=== PATIENT | female | born 2005 | race Caucasian/White ===

== ENCOUNTER 2023-06-30 15:19 | Emergency (ER) | payer MEDICARE ==
[2023-06-30 15:43] VITALS: TEMP 98.2
--- NOTE | 2023-06-30 15:48 | ED ---
Upper Extremity HPI - General Chief Complaint: Extremity Injury, Upper Stated Complaint: Left Wrist Injury Time Seen by Provider: 06/30/23 15:32 Source: patient, RN notes reviewed, old records reviewed Mode of arrival: ambulatory Limitations: no limitations - History of Present Illness Initial Comments: This is a 18-year-old female to the ER today. Patient went today for evaluation of severe wrist pain persistent wrist pain after a fall. Patient has had an additional fall as well as a repeat fall resulting in left wrist pain which is presenting her to the ER today. She has no other complaints no other injuries noted MD Complaint: Injury to:: left, wrist, hand -: days(s) Other Extremity Injury: Hand: Left, Wrist: Left Other Injuries: none Handedness: right Place: home Severity scale (1-10): 9 Improves With: none Worsens With: none Context: fall, direct blow Associated Symptoms: denies other symptoms Treatments Prior to Arrival: cold therapy, bandage, splint - Related Data Allergies Allergy/AdvReac Type Severity Reaction Status Date / Time No Known Allergies Allergy Verified 06/30/23 15:27 Review of Systems ROS Statement: Those systems with pertinent positive or pertinent negative responses have been documented in the HPI. ROS Other: All systems not noted in ROS Statement are negative. Past Medical History Past Medical History: No Reported History Past Surgical History: No Surgical Hx Reported Smoking Status: Never smoker General Exam Limitations: no limitations General appearance: alert, in no apparent distress Head exam: Present: atraumatic, normocephalic, normal inspection Eye exam: Present: normal appearance, PERRL, EOMI. Absent: scleral icterus, conjunctival injection, periorbital swelling ENT exam: Present: normal exam, mucous membranes moist Neck exam: Present: normal inspection. Absent: tenderness, meningismus, lymphadenopathy Respiratory exam: Present: normal lung sounds bilaterally. Absent: respiratory distress, wheezes, rales, rhonchi, stridor Cardiovascular Exam: Present: regular rate, normal rhythm, normal heart sounds. Absent: systolic murmur, diastolic murmur, rubs, gallop, clicks GI/Abdominal exam: Present: soft, normal bowel sounds. Absent: distended, tenderness, guarding, rebound, rigid Extremities exam: Present: normal inspection, full ROM, normal capillary refill. Absent: tenderness, pedal edema, joint swelling, calf tenderness Back exam: Present: normal inspection Neurological exam: Present: alert, oriented X3, CN II-XII intact Psychiatric exam: Present: normal affect, normal mood Skin exam: Present: warm, dry, intact, normal color. Absent: rash Course Vital Signs 06/30/23 06/30/23 15:24 18:12 Temperature 98.2 F Pulse Rate 77 81 Respiratory 16 18 Rate Blood Pressure 120/84 110/76 O2 Sat by Pulse 95 96 Oximetry - Reevaluation(s) Reevaluation #1: Medical record is reviewed Reevaluation #2: Patient symptoms unchanged Reevaluation #3: Patient informed of results and questions answered Reevaluation #4: Was pt. sent in by a medical professional or institution (, DELFINA, CLINICAL NURSE SPECIALIST, urgent care, hospital, or senior living...) When possible be specific @ -no Did you speak to anyone other than the patient for history (EMS, parent, family, police, friend...)? What history was obtained from this source @ -no Did you review nursing and triage notes (agree or disagree)? Why? @ -agree Are old charts reviewed (outside hosp., previous admission, EMS record, old EKG, old radiological studies, urgent care reports/EKG's, senior living records)? Report findings @ -yes Differential Diagnosis (chest pain, altered mental status, abdominal pain women, abdominal pain men, vaginal bleeding, weakness, fever, dyspnea, syncope, headache, dizziness, GI bleed, back pain, seizure, CVA, palpatations, mental health, musculoskeletal)? @ -prior EKG interpreted by me (3pts min.). @ -yes X-rays interpreted by me (1pt min.). @ -yes negative for acute disease CT interpreted by me (1pt min.). @ -no U/S interpreted by me (1pt. min.). @ -no What testing was considered but not performed or refused? (CT, X-rays, U/S, labs)? Why? @ -none What meds were considered but not given or refused? Why? @ -none Did you discuss the management of the patient with other professionals (professionals i.e. DELFINA Gorman, CLINICAL NURSE SPECIALIST, lab, RT, psych nurse, social work job titles, making line worker, teacher, electronic warfare officer, geriatric case manager)? Give summary @ -no Was smoking cessation discussed for >3mins.? @ -no Was critical care preformed (if so, how long)? @ -no Were there social determinants of health that impacted care today? How? (Homelessness, low income, unemployed, alcoholism, drug addiction, transportation, low edu. Level, literacy, decrease access to med. care, longterm, rehab)? @ -none Was there de-escalation of care discussed even if they declined (Discuss DNR or withdrawal of care, Hospice)? DNR status @ -no What co-morbidities impacted this encounter? (DM, HTN, Smoking, COPD, CAD, Cancer, CVA, ARF, Chemo, Hep., AIDS, mental health diagnosis, sleep apnea, morbid obesity)? @ -none Was patient admitted / discharged? Hospital course, mention meds given and route, prescriptions, significant lab abnormalities, going to OR and other pertinent info. @ - Undiagnosed new problem with uncertain prognosis? @ -no Drug Therapy requiring intensive monitoring for toxicity (Heparin, Nitro, Insulin, Cardizem)? @ -no Were any procedures done? @ -no Diagnosis/symptom? @ - Acute, or Chronic, or Acute on Chronic? @ -Acute Uncomplicated (without systemic symptoms) or Complicated (systemic symptoms)? @ -Complicated Side effects of treatment? @ -no Exacerbation, Progression, or Severe Exacerbation? @ -exacerbation Poses a threat to life or bodily function? How? (Chest pain, [place], [place], pneumonia, PE, COPD, DKA, ARF, appy, cholecystitis, CVA, Diverticulitis, Homicidal, Suicidal, threat to staff... and all critical care pts) @ -yes Procedures - Orthopedic Splinting/Casting Injury #1 Side: left Upper Extremity Injury Location: wrist, hand Upper Extremity Immobilizer: thumb spica Medical Decision Making - Medical Decision Making 18 female to ER after a fall. Multiple recent falls on the left wrist with severe left wrist pain and swelling. Patient has been waiting at home for pain to improve but pain has not improved increased swelling and decreased range of motion in the left wrist. Patient does have possible evidence of scapholunate sprain or ligament, with possible scaphoid fracture. Patient will be given a splint and can be discharged home - Radiology Data Radiology results: report reviewed (X-ray left wrist is positive for possible fracture, CT left wrist is positive for scapholunate ligament sprain), image reviewed Disposition Clinical Impression: Fracture of scaphoid of left wrist, Sprain of scapholunate ligament, Fall Disposition: HOME SELF-CARE Condition: Good Instructions (If sedation given, give patient instructions): Scaphoid Fracture (ED) Is patient prescribed a controlled substance at d/c from ED?: No Referrals: Niko Infante DO [Doctor of Osteopathic Medicine] - 1-2 days Time of Disposition: 17:10
--- NOTE | 2023-06-30 16:37 | XR ---
EXAMINATION TYPE: XR wrist complete LT DATE OF EXAM: 06/30/2023 COMPARISON: NONE HISTORY: 18-year-old female twisting and fall injury TECHNIQUE: 4 views FINDINGS: There is some subtle lucency at the distal scaphoid pole only seen on the navicular view. R adiocarpal and distal radioulnar joint and midcarpal compartment otherwise appear intact. IMPRESSION: Questionable lucency at the distal scaphoid pole only seen on the navicular view. This could represen t superimposition shadow versus subtle nondisplaced scaphoid fracture. Correlate for any snuffbox ten derness. CT or MRI as clinically indicated.
--- NOTE | 2023-06-30 18:21 | CT ---
EXAMINATION TYPE: CT wrist LT wo con DATE OF EXAM: 06/30/2023 COMPARISON: Radiograph same day HISTORY: 18-year-old female abnormal XR. History of recent multiple trauma to left wrist TECHNIQUE: Contiguous axial scanning of the left wrist without IV contrast. Coronal and sagittal zane nstructions performed.. Reconstructions generated on a dedicated workstation. CT DLP: 254.5 mGycm Automated exposure control for dose reduction was used. FINDINGS: Prominent scapholunate interval measuring up to 2.5 cm may reflect underlying ligamentous injury. However, no acute fracture or dislocation is identified. Radiocarpal and distal radial ulnar joint as well as the remainder of the midcarpal compartment appear intact. IMPRESSION: NO ACUTE OSSEOUS ABNORMALITY SEEN. HOWEVER, THERE IS PROMINENCE TO THE SCAPHOLUNATE INTERVAL AT 2.5 M M WHICH MAY REFLECT UNDERLYING LIGAMENTOUS SPRAIN. CLINICALLY CORRELATE.
[2023-06-30 18:34] VITALS: BP 110/76; PULSE 81; RESP 18
== END 2023-06-30 18:13 | disposition home or self-care (01) ==
LOC: EC 15:19
DX: S62.002A Unspecified fracture of navicular [scaphoid] bone of left wrist, initial encounter for closed fracture (principal); W19.XXXA Unspecified fall, initial encounter
CPT/HCPCS: 29125; 99284

== ENCOUNTER → 2024-04-01 | Outpatient (CLI) | payer MEDICARE, BC ==
--- NOTE | 2024-04-02 19:22 | US ---
EXAMINATION TYPE: US transvaginal DATE OF EXAM: 04/01/2024 COMPARISON: NONE CLINICAL INDICATION: Female, 18 years old with history of N91.2 AMENORRHEA; Pt did not have a period for 3 months before last period which started on 09/2023) TECHNIQUE: Transvaginal (TV). Doppler imaging: Not performed. FINDINGS: Date of LMP: 03/22/2024 EXAM MEASUREMENTS: Uterus: 7.6x3.4x4.0 cm Endometrial Stripe: Right= 0.2 cm, Left= 0.2cm Right Ovary: 3.0x1.2x1.2 cm Left Ovary: not visualized 1. Uterus: Anteverted A small amount of fluid seen within cervical canal. 2. Endometrium: There appears to be two endometrial canals at fundus the transverse plane. MRI could evaluate for bicornuate uterus. 3. Right Ovary: wnl 4. Left Ovary: Obscured by overlying bowel gas 5. Bilateral Adnexa: minimal fluid seen in Rt Adnexa 6. Posterior cul-de-sac: fluid seen IMPRESSION: 1. Suggestion of bicornuate uterus. Additional evaluation with MRI is recommended. [facility], , 04/02/2024 7:19 PM
== END | disposition home or self-care (01) ==
LOC: RADUSWWP 14:47
PROVIDERS: ATTEND Family Medicine
DX: N91.2 Amenorrhea, unspecified (principal)
CPT/HCPCS: 76830

== ENCOUNTER → 2024-05-07 | Outpatient (CLI) | payer MEDICARE, OTHER ==
--- NOTE | 2024-05-08 11:31 | MR ---
EXAMINATION TYPE: MR pelvis wo con DATE OF EXAM: 05/07/2024 2:15 PM COMPARISON: 04/01/2024. 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 TECHNIQUE: Triplane multisequence imaging was performed of the pelvis. IV Contrast: None FINDINGS: Reproductive: Vagina: Unremarkable. Uterus: The uterus is anteverted in position. The uterine fundus has a slight dip in the serosa with slight indentation on the endometrial fundal portion is present.. Morphology to the endometrium in th e uterus. Uterus measures 7.9 x 2.9 x 5.6 cm. The endometrium and junctional zone are within normal l imits. Ovaries: Multiple follicles are seen bilaterally in the ovaries greater than 20. Left ovary measures 56 x 17 x 12 mm and the right ovary measures 45 x 18 x 19 mm. Reproductive: Prostate: Unremarkable. Seminal vesicle's: Unremarkable. Testes: Unremarkable. Bladder: Unremarkable. Bowel: Unremarkable as visualized. Peritoneum: Trace free fluid or adenopathy identified. Lymph nodes: No evidence of adenopathy. Vasculature: Unremarkable. Musculoskeletal: Bone marrow signal is within normal signal intensity. Abdominal wall/soft tissues: Unremarkable. IMPRESSION: 1. The uterine fundus has a slight dip in the serosa with findings suggestive of bicornuate versus s eptate/arcuate uterus. 2. Multiple follicles bilaterally correlate for polycystic ovarian syndrome. [facility], , 05/08/2024 11:29 AM
== END | disposition home or self-care (01) ==
LOC: RADMRIMAIN 13:08
PROVIDERS: ATTEND Family Medicine
DX: Q51.3 Bicornate uterus (principal); N91.2 Amenorrhea, unspecified
CPT/HCPCS: 72195